=== PATIENT | female | born 1970 | race African-American/Black ===

== ENCOUNTER 2016-12-16 14:45 | Emergency (ER) | payer OTHER ==
[~2016-12-16] VITALS: Ht 170.2 cm; Wt 92.5 kg
[~2016-12-16 14:45] MED LIST: LORT5TAB PO; Z.0.NO CURRENT MEDS
[2016-12-16 14:46] VITALS: BP 143/85; PULSE 103; RESP 14; TEMP 98.6; O2SAT 99
--- NOTE | 2016-12-16 14:57 | PD ---
Physical Exam Date Seen by Provider: December 16, 2016 Time Seen by Provider: 14:54 Narrative Pt presents due to blood clots in her leg. She had an outpatient US preformed which shows an occlusive and non-occlusive DVT of left common femoral vein and iliac vein, superficial vein thrombosis of greater saphenous vein on the left. Pain is an 8/10 exacerbated by ambulation. No hx of DVT, no oral contraceptives. Pt on megace for her periods. Stopped this 2 weeks ago. No SOB or chest pain. VSS, awaiting bed placement. Data Data Last Documented VS Vital Signs Date Time Temp Pulse Resp B/P Pulse Ox O2 Delivery O2 Flow Rate FiO2 12/16/16 14:46 98.6 103 14 143/85 99 MDM Supervised Visit with LADONNA: Christina Avila December 16, 2016 14:57
--- NOTE | 2016-12-16 16:38 | PD ---
HPI Chief Complaint: Edema Time Seen by Provider: 16:22 Travel History International Travel<30 days: No Contact w/Intl Traveler<30days: No Traveled to known affect area: No History of Present Illness HPI This is a 46 year old female who presents to the emergency department with a dvt in her left leg. Pt. reports that for 2 weeks she has been having pain in her left lower extremity, constant, moderate severity, with no associated numbness or weakness. She has never had a DVT before. Pt. has fibroids and had been on megace but recently stopped it. Her talent coordinator sent her for the ultrasound. She denies chest pain or shortness of breath. PFSH Past Medical History Deep Vein Thrombosis: Yes Medical other: Yes (fibroids) ?: Not Social History Alcohol Use: No Tobacco Use: No Substance Use: No Allergies-Medications (Allergen,Severity, Reaction): Coded Allergies: No Known Allergies (Verified , 10/15/10) Reported Meds & Prescriptions Reported Meds & Active Scripts Active Lortab 5/500 (Acetaminophen/Hydrocodone Bitart) 5 Mg/500 Mg Tab 1-2 Tab PO Q6HPRN Reported No Current Meds (Miscellaneous Medication) Misc Review of Systems Except as stated in HPI: all other systems reviewed are Neg Physical Exam Narrative GENERAL:Well appearing, no acute distress SKIN: Focused skin assessment warm and dry. HEAD: Atraumatic. Normocephalic. EYES: Pupils equal and round. No injection or drainage. ENT: Moist mucous membranes NECK: Trachea midline. CARDIOVASCULAR: Regular rate and rhythm. No murmur appreciated. RESPIRATORY: Clear to auscultation. Breath sounds equal bilaterally. GASTROINTESTINAL: Abdomen soft, non-tender, nondistended. MUSCULOSKELETAL: No obvious deformities. NEUROLOGICAL: Awake and alert. No obvious cranial nerve deficits. Moving all extremities. PSYCHIATRIC: Appropriate mood and affect; insight and judgment normal. Data Data Last Documented VS Vital Signs Date Time Temp Pulse Resp B/P Pulse Ox O2 Delivery O2 Flow Rate FiO2 12/16/16 14:46 98.6 103 14 143/85 99 Orders Complete Blood Count With Diff (12/16/16 16:39) Basic Metabolic Panel (Bmp) (12/16/16 16:39) Prothrombin Time / Inr (Pt) (12/16/16 16:39) Act Partial Throm Time (Ptt) (12/16/16 16:39) Labs Laboratory Tests Test 12/16/16 16:30 White Blood Count 6.5 TH/MM3 Red Blood Count 4.48 MIL/MM3 Hemoglobin 9.1 GM/DL Hematocrit 29.6 % Mean Corpuscular Volume 66.1 FL Mean Corpuscular Hemoglobin 20.2 PG Mean Corpuscular Hemoglobin 30.6 % Concent Red Cell Distribution Width 21.6 % Platelet Count 442 TH/MM3 Mean Platelet Volume 9.1 FL Neutrophils (%) (Auto) 68.2 % Lymphocytes (%) (Auto) 22.5 % Monocytes (%) (Auto) 5.4 % Eosinophils (%) (Auto) 3.7 % Basophils (%) (Auto) 0.2 % Neutrophils # (Auto) 4.4 TH/MM3 Lymphocytes # (Auto) 1.4 TH/MM3 Monocytes # (Auto) 0.4 TH/MM3 Eosinophils # (Auto) 0.2 TH/MM3 Basophils # (Auto) 0.0 TH/MM3 CBC Comment AUTO DIFF Differential Comment AUTO DIFF CONFIRMED Platelet Estimate NORMAL Platelet Morphology Comment NORMAL Tear Drop Cells 1+ Ovalocytes 1+ Keratocytes OCC Prothrombin Time 11.4 SEC Prothromb Time International 1.0 RATIO Ratio Activated Partial 24.3 SEC Thromboplast Time Sodium Level 138 MEQ/L Potassium Level 3.5 MEQ/L Chloride Level 102 MEQ/L Carbon Dioxide Level 27.0 MEQ/L Anion Gap 9 MEQ/L Blood Urea Nitrogen 10 MG/DL Creatinine 0.76 MG/DL Estimat Glomerular Filtration 100 ML/MIN Rate Random Glucose 120 MG/DL Calcium Level 9.0 MG/DL MDM Medical Decision Making Medical Screen Exam Complete: Yes Emergency Medical Condition: Yes Interpretation(s) afebrile, tachycardic, hypertensive Microcytic anemia Electrolytes are reassuring Coags are normal Differential Diagnosis DVT, pulmonary embolism, renal insufficiency Narrative Course This is a 46-year-old female who presents to the emergency department with an occlusive and nonocclusive DVT in the left common femoral vein and the iliac vein diagnosed at an outpatient imaging center. Patient had been on Megace up until 2 weeks ago which is likely the etiology of her symptoms. I don't see any contraindication of the patient's starting Xarelto. She was given her first dose here in the emergency department. She is asked to follow up with her primary care physician and she was advised of the signs and symptoms of worsening anemia or bleeding. Diagnosis Primary Impression: DVT (deep venous thrombosis) Qualified Code: I82.412 - Acute deep vein thrombosis (DVT) of femoral vein of left lower extremity Patient Instructions: General Instructions Additional Instructions: If you develop severe chest pain, shortness of breath, sweating, lightheadedness , dizziness or difficulty breathing return to the emergency department immediately. Followup with your primary care physician in 2-3 days without fail regarding your dvt and your xarelto. Med/Other Pt SpecificInfo: Prescription(s) given Scripts Rivaroxaban (Xarelto)15 Mg Tab15 Mg PO BID 21 Days Ref 0 Prov:Jimena Luke MD 12/16/16 Disposition: 01 DISCHARGE HOME Condition: Stable Jimena Luke MD December 16, 2016 16:38
[2016-12-16 17:18] LABS: AUTOMATED NEUTROPHIL # 4.4 TH/MM3 (1.8-7.7); BASOPHIL % 0.2 % (0.0-2.0); EOSINOPHIL # 0.2 TH/MM3 (0-0.4); EOSINOPHIL % 3.7 % (0.0-4.0); HEMATOCRIT 29.6 % (35.0-46.0); LYMPH % 22.5 % (9.0-44.0); LYMPHOCYTE # 1.4 TH/MM3 (1.0-4.8); MEAN CELL VOLUME 66.1 FL (80.0-100.0); MEAN CORPUSCULAR HEMOGLOBIN 20.2 PG (27.0-34.0); MEAN CORPUSCULAR HGB CONC 30.6 % (32.0-36.0); MONO % 5.4 % (0.0-8.0); NEUT % 68.2 % (16.0-70.0); PLATELET COUNT 442 TH/MM3 (150-450); RED BLOOD COUNT 4.48 MIL/MM3 (4.00-5.30); RED CELL DISTRIBUTION WIDTH 21.6 % (11.6-17.2); WHITE BLOOD COUNT 6.5 TH/MM3 (4.0-11.0)
[2016-12-16 17:21] LABS: APTT (PATIENT) 24.3 SEC (24.3-30.1); PROTHROMBIN TIME - PATIENT 11.4 SEC (9.8-11.6)
[2016-12-16 17:22] LABS: HEMO FLAGS AUTO DIFF
[2016-12-16 17:34] LABS: POTASSIUM 3.5 MEQ/L (3.5-5.1)
[2016-12-16 18:03] LABS: KERATOCYTES OCC (NORMAL); OVALOCYTES 1+ (NORMAL); PLATELET ESTIMATE SMEAR NORMAL (NORMAL); PLATELET MORPHOLOGY NORMAL (NORMAL); SCAN/DIFF AUTO DIFF CONFIRMED; TEARDROP RBCS 1+ (NORMAL)
[2016-12-16] MEDS ORDERED: XARE15TA PO (18:21)
[2016-12-16] MEDS ORDERED: RIVAROXABAN 15 MG TAB PO ONE (18:30)
== END 2016-12-16 19:23 | disposition home or self-care (01) ==
LOC: NEPC 14:45
DX: I82.412 Acute embolism and thrombosis of left femoral vein (principal)
CPT/HCPCS: 80048; 85025; 85610; 85730; 99284

== ENCOUNTER 2017-02-22 11:24 | Inpatient (IN) | payer OTHER ==
[~2017-02-22] VITALS: Ht 170.2 cm; Wt 92.2 kg
[2017-02-25] MEDS ORDERED: IBUP200T2 PO (12:42)
[2017-02-28] MEDS ORDERED: ceFAZolin 2 GM PREMIX 50 ML IV SCH (06:15)
[2017-02-28] MEDS ORDERED: INSULIN HUMAN REGULAR 1,000 UNITS/10 ML VIAL SQ PRN (06:30)
[2017-02-28] MEDS ORDERED: CHLORHEXIDINE GLUCONATE 2 % 1 PACK (2 CLOTHS) TOPICAL PRN (06:30)
[2017-02-28] MEDS ORDERED: POVIDONE IODINE 5% (ANTISEPSIS KIT) 4 APPLICATIONS EACH NARE PRN (06:30)
[2017-02-28] MEDS ORDERED: SODIUM CHLORID 0.9% 500 ML IV PRN (06:30)
[2017-02-28] MEDS ORDERED: LACTATED RINGER'S 1000 ML IV PRN (06:30)
[2017-02-28] MEDS ORDERED: METOPROLOL TARTRATE 25 MG TAB PO PRN (06:30)
[2017-02-28 06:36] VITALS: BP 139/78; PULSE 87; RESP 16; TEMP 98.5; O2SAT 100
[2017-02-28 06:44] LABS: MEAN CORPUSCULAR HGB CONC 29.3 % (32.0-36.0)
[2017-02-28 06:57] LABS: BASOPHIL % 0.2 % (0.0-2.0); EOSINOPHIL # 0.3 TH/MM3 (0-0.4); LYMPH % 32.5 % (9.0-44.0); LYMPHOCYTE # 1.2 TH/MM3 (1.0-4.8); MEAN CELL VOLUME 66.4 FL (80.0-100.0); MEAN CORPUSCULAR HEMOGLOBIN 19.5 PG (27.0-34.0); MONO % 7.7 % (0.0-8.0); NEUT % 52.6 % (16.0-70.0); PLATELET COUNT 296 TH/MM3 (150-450); RED BLOOD COUNT 4.97 MIL/MM3 (4.00-5.30); RED CELL DISTRIBUTION WIDTH 22.2 % (11.6-17.2); WHITE BLOOD COUNT 3.8 TH/MM3 (4.0-11.0)
[2017-02-28 07:00] LABS: HEMO FLAGS AUTO DIFF
[2017-02-28 07:08] LABS: PROTHROMBIN TIME - PATIENT 10.7 SEC (9.8-11.6)
[2017-02-28] MEDS ORDERED: ACETAMINOPHEN 1000 MG/100 ML VIAL IV ONE (07:08)
[2017-02-28] MEDS ORDERED: ONDANSETRON HCL 4 MG/2 ML VIAL ONE (07:09)
[2017-02-28] MEDS ORDERED: FAMOTIDINE 20 MG/2 ML VIAL ONE (07:09)
[2017-02-28] MEDS ORDERED: fentaNYL CITRATE 250 MCG/5 ML AMP ONE ×2 (07:09→10:46)
[2017-02-28] MEDS ORDERED: MIDAZOLAM HCL 2 MG/2 ML VIAL ONE (07:09)
[2017-02-28 07:30] LABS: BETA HCG QUANT LESS THAN 1 MIU/ML (0-5)
[2017-02-28 08:09] LABS: OVALOCYTES 2+ (NORMAL); PLATELET ESTIMATE SMEAR NORMAL (NORMAL); PLATELET MORPHOLOGY NORMAL (NORMAL); SCAN/DIFF AUTO DIFF CONFIRMED
--- NOTE | 2017-02-28 08:20 | MH ---
cc: SERAFIN HOFFMANN DATE OF ADMISSION: 02/28/2017 HISTORY OF PRESENT ILLNESS: The patient is a 46-year-old 2, para 2 who presents with a history of menorrhagia and history of uterine fibroids. The patient desires operative intervention. She has failed OCPs and actually had a blood clot and she was taking Megace and that was back in December of 2016. The patient has seen Dr. Ferguson and has stopped her Xarelto back on February 18. She had a follow up ultrasound on 02/16 that showed the clot had resolved. PAST MEDICAL HISTORY: The patient's past medical history is significant for: 1. Anemia. 2. Headaches. 3. Left lower extremity DVT. ALLERGIES: NONE. OB HISTORY: She had two pregnancies, both with vaginal deliveries. COMPUTER SYSTEMS SOFTWARE ARCHITECT HISTORY: No STDs. No abnormal Pap smear. She does have a history of uterine fibroids, largest was 6 to 7 cm. Her endometrial biopsy back in November was also negative. PAST SURGICAL HISTORY: Bartholin's cyst incision and drainage. FAMILY HISTORY: Negative. SOCIAL HISTORY: Negative for cigarettes, alcohol, street drugs. The patient is single and works at [employer] in [employer]. REVIEW OF SYSTEMS: Review of all other systems is negative. PHYSICAL EXAMINATION: HEIGHT: 5 feet 6. WEIGHT: 206. VITAL SIGNS: Her blood pressure is 118/74. GENERAL: She is in no acute distress. HEART: Regular rate and rhythm. LUNGS: Clear to auscultation bilaterally. ABDOMEN: The abdomen is soft, nontender and nondistended. She does have an 18 to 20 week sized uterus. LOWER EXTREMITIES: Nontender, nonedematous. IMPRESSION: 1. Menorrhagia. 2. Uterine fibroids. PLAN: The plan is for an for a total abdominal hysterectomy with bilateral salpingectomies. The risks, benefits, alternatives have been reviewed. The patient does desire to proceed. MD VINCENT Arellano/[facility] /3:16 PM /8:23 AM
[2017-02-28] MEDS ORDERED: SODIUM CHLORIDE 0.9% FLUSH 10 ML FLUSH IV FLUSH PRN (09:45)
[2017-02-28] MEDS ORDERED: PROMETHAZINE HCL 25 MG TAB PO PRN (09:45)
[2017-02-28] MEDS ORDERED: IBUPROFEN 600 MG TAB PO PRN (09:45)
[2017-02-28] MEDS ORDERED: ZOLPIDEM TARTRATE 5 MG TAB PO PRN (09:45)
[2017-02-28] MEDS ORDERED: ONDANSETRON HCL 4 MG/2 ML VIAL IVP PRN (09:45)
[2017-02-28] MEDS ORDERED: NALOXONE HCL 0.4 MG/ML AMP IV PRN (09:45)
[2017-02-28] MEDS ORDERED: diphenhydrAMINE HCL 25 MG CAP PO PRN ×2 (09:45)
[2017-02-28] MEDS ORDERED: KETOROLAC TROMETHAMINE 30 MG/ML (IVP) VIAL IVP PRN (09:45)
[2017-02-28] MEDS ORDERED: ONDANSETRON ODT 4 MG TAB PO PRN (09:45)
[2017-02-28] MEDS ORDERED: oxyCODONE/ACETAMINOPHEN 5 MG/325 MG TAB PO PRN (09:45)
[2017-02-28] MEDS ORDERED: diphenhydrAMINE HCL 50 MG/ML VIAL IV PRN (09:45)
[2017-02-28] MEDS ORDERED: PROMETHAZINE INJ 25 MG/ML VIAL IM PRN (09:45)
[2017-02-28] MEDS ORDERED: DO NOT ADM ANY ANTICOAGULANT DRUGS PRN (09:47)
[2017-02-28] MEDS: LACTATED RINGER'S 1000 ML INJ 1,000 ML IV SCH ×2 (10:00→18:10)
[2017-02-28] MEDS: MORPHINE SULFATE 30 MG/30 ML PCA IV SCH ×2 (10:13→18:09)
[2017-02-28] MEDS ORDERED: NEOSTIGMINE 3 MG/3 ML SYR IV ONE (12:00)
[2017-02-28] MEDS ORDERED: LACTATED RINGER'S 1000 ML INJ 1,000 ML IV ONE (12:00)
[2017-02-28] MEDS ORDERED: PROPOFOL 200 MG/20 ML AMP IV ONE (12:00)
[2017-02-28] MEDS ORDERED: ONDANSETRON HCL 4 MG/2 ML VIAL IV PUSH ONE (12:00)
[2017-02-28 14:00] VITALS: BP 115/67; PULSE 84; RESP 16; TEMP 97.8; O2SAT 97
[2017-02-28] MEDS: PCA - TOTAL MG MORPHINE DELIVERED PER SHIFT SCH ×2 (14:00→22:00)
[2017-02-28 16:00] VITALS: BP 129/69; PULSE 69; RESP 16; TEMP 97.2; O2SAT 99
[2017-02-28 20:15] VITALS: BP 120/64; PULSE 78; RESP 16; TEMP 97.1; O2SAT 98
[2017-02-28] MEDS: SODIUM CHLORIDE 0.9% FLUSH 10 ML FLUSH IV FLUSH SCH (21:00)
[2017-02-28] MEDS: DOCUSATE SODIUM 100 MG CAP PO SCH (22:11)
[2017-03-01] VITALS (7 sets, daily range): BP systolic 108–126; BP diastolic 58–76; PULSE 64–73; RESP 16; TEMP 97.9–99.3; O2SAT 97–100
[2017-03-01] MEDS: LACTATED RINGER'S 1000 ML INJ 1,000 ML IV SCH ×3 (02:08→20:28)
[2017-03-01] MEDS: PCA - TOTAL MG MORPHINE DELIVERED PER SHIFT SCH ×4 (06:00→20:29)
[2017-03-01] MEDS: DOCUSATE SODIUM 100 MG CAP PO SCH ×2 (08:06→23:10)
[2017-03-01] MEDS: ENOXAPARIN SODIUM 40 MG/0.4 ML SYRINGE SQ SCH (08:06)
[2017-03-01] MEDS: SODIUM CHLORIDE 0.9% FLUSH 10 ML FLUSH IV FLUSH SCH ×2 (08:06→23:18)
--- NOTE | 2017-03-01 10:04 | HHI.PR ---
Subjective Remarks Doing well, pain is well controlled, mild nausea, denies vomiting, SOB or CP. Objective Vital Signs Vital Signs Date Time Temp Pulse Resp B/P Pulse Ox O2 Delivery O2 Flow Rate FiO2 03/01/17 08:42 97.9 70 16 126/69 98 03/01/17 06:00 16 03/01/17 04:15 99.0 73 16 110/65 97 03/01/17 00:00 98.1 67 16 108/63 98 02/28/17 22:00 16 02/28/17 20:15 97.1 78 16 120/64 98 02/28/17 18:20 16 02/28/17 18:09 16 02/28/17 16:00 97.2 69 16 129/69 99 02/28/17 14:00 97.8 84 16 115/67 97 02/28/17 14:00 16 02/28/17 13:50 60 14 132/76 100 Nasal Cannula 2 02/28/17 13:30 66 14 141/81 100 Nasal Cannula 2 02/28/17 12:30 54 14 137/82 100 Nasal Cannula 2 02/28/17 11:30 54 14 137/82 100 Nasal Cannula 2 02/28/17 10:30 58 14 138/82 100 Nasal Cannula 2 02/28/17 10:15 60 14 139/85 100 Nasal Cannula 3 02/28/17 10:13 14 I/O 02/28/17 02/28/17 02/28/17 03/01/17 03/01/17 03/01/17 07:00 15:00 23:00 07:00 15:00 23:00 Intake Total 2980 ml 1516 ml 1030 ml Output Total 550 ml 1250 ml 250 ml Balance 2430 ml 266 ml 780 ml Intake Oral 480 ml IV Total 500 ml 1516 ml 1030 ml Other 2000 ml Output Urine Total 300 ml 1250 ml 250 ml Estimated Blood Loss 250 ml # Bowel Movements 0 Result Diagram: 02/28/17 0620 Objective Remarks Chest is clear, regular rate and rhythm. Abdomen is soft and non-distended. Incision is clean and dry. Ext no CCE. A/P Assessment and Plan Post Op Day 1 Doing well advance diet start po meds zofran and reglan for nausea. Low Nazario MD Mar 01, 2017 10:04
[2017-03-01 12:35] LABS: AUTOMATED NEUTROPHIL # 6.1 TH/MM3 (1.8-7.7); BASOPHIL % 0.3 % (0.0-2.0); HEMATOCRIT 28.7 % (35.0-46.0); HEMO FLAGS DIFF FINAL; LYMPH % 7.2 % (9.0-44.0); LYMPHOCYTE # 0.5 TH/MM3 (1.0-4.8); MEAN CELL VOLUME 64.6 FL (80.0-100.0); MEAN CORPUSCULAR HEMOGLOBIN 19.8 PG (27.0-34.0); MEAN CORPUSCULAR HGB CONC 30.7 % (32.0-36.0); MONO % 5.3 % (0.0-8.0); NEUT % 87.2 % (16.0-70.0); PLATELET COUNT 248 TH/MM3 (150-450); RED BLOOD COUNT 4.45 MIL/MM3 (4.00-5.30); RED CELL DISTRIBUTION WIDTH 22.2 % (11.6-17.2); WHITE BLOOD COUNT 6.9 TH/MM3 (4.0-11.0)
[2017-03-01] MEDS: oxyCODONE/ACETAMINOPHEN 5 MG/325 MG TAB PO PRN ×3 (12:50→23:09)
[2017-03-01] MEDS: METOCLOPRAMIDE HCL 10 MG/2 ML VIAL IV PUSH SCH ×2 (12:52→18:05)
[2017-03-01 14:00] LABS: BICARBONATE 28.6 MEQ/L (21.0-32.0); POTASSIUM 3.7 MEQ/L (3.5-5.1)
[2017-03-01] MEDS: METOCLOPRAMIDE HCL 10 MG TAB PO SCH (23:10)
[2017-03-02] VITALS: BP 120/58; PULSE 64; RESP 16; TEMP 99.2; O2SAT 94
[2017-03-02 04:00] VITALS: BP 121/74; PULSE 83; RESP 16; TEMP 99.5; O2SAT 98
[2017-03-02] MEDS: oxyCODONE/ACETAMINOPHEN 5 MG/325 MG TAB PO PRN ×2 (06:51→11:20)
[2017-03-02] MEDS: METOCLOPRAMIDE HCL 10 MG TAB PO SCH (06:52)
[2017-03-02 08:00] VITALS: BP 119/73; PULSE 75; RESP 18; TEMP 98.9; O2SAT 98
[2017-03-02] MEDS ORDERED: SIMETHICONE 80 MG CHEWABLE TAB PO SCH (09:00)
[2017-03-02] MEDS: ENOXAPARIN SODIUM 40 MG/0.4 ML SYRINGE SQ SCH (10:04)
[2017-03-02] MEDS: DOCUSATE SODIUM 100 MG CAP PO SCH (10:04)
[2017-03-02] MEDS: SODIUM CHLORIDE 0.9% FLUSH 10 ML FLUSH IV FLUSH SCH (10:05)
[2017-03-02] MEDS ORDERED: OXYC1TAB63 PO (11:39)
[2017-03-02] MEDS ORDERED: IBUP-232 PO (11:39)
--- NOTE | 2017-03-02 11:41 | HHI.DCPOC ---
Discharge Care Plan Diagnosis: (1) Menorrhagia Your Health Problems Are: Vaginal bleeding Report Symptoms to Your Doctor -Temperature above 100.5 degrees -Redness, of incision or excessive or foul smelling drainage -Unusual pain or calf pain -Increased vaginal bleeding -Painful or difficulty urinating -Feelings of extreme sadness or anxiety after 2 weeks Goals to Promote Your Health * To prevent worsening of your condition and complications * To maintain your health at the optimal level Directions to Meet Your Goals Take your medications as prescribed Follow your dietary instruction Follow activity as directed Ensure plenty of rest for recovery Drink fluids for hydration Keep your appointments as scheduled Take your immunizations and boosters as scheduled If your symptoms worsen call your PCP, if no PCP go to Urgent Care Center or Emergency Room Smoking is Dangerous to Your Health. Avoid second hand smoke Call the 24-hour crisis hotline for domestic abuse at Low Nazario MD Mar 02, 2017 11:41
[2017-03-02 12:00] VITALS: BP 116/72; PULSE 78; RESP 16; TEMP 98.8; O2SAT 98
--- NOTE | 2017-03-02 22:24 | HHI.DS ---
Discharge Summary Admission Date Feb 28, 2017 at 05:34 Discharge Date: Mar 02, 2017 Admitting Diagnosis (1) Menorrhagia Diagnosis: Principal Procedures LEEROY/b/l salpingectomies CBC/BMP: 03/01/17 1205 03/01/17 1205 Significant Findings Laboratory Tests Test 02/28/17 03/01/17 06:20 12:05 White Blood Count 3.8 TH/MM3 (4.0-11.0) Hemoglobin 9.7 GM/DL 8.8 GM/DL (11.6-15.3) (11.6-15.3) Hematocrit 33.0 % 28.7 % (35.0-46.0) (35.0-46.0) Mean Corpuscular Volume 66.4 FL 64.6 FL (80.0-100.0) (80.0-100.0) Mean Corpuscular Hemoglobin 19.5 PG 19.8 PG (27.0-34.0) (27.0-34.0) Mean Corpuscular Hemoglobin 29.3 % 30.7 % Concent (32.0-36.0) (32.0-36.0) Red Cell Distribution Width 22.2 % 22.2 % (11.6-17.2) (11.6-17.2) Eosinophils (%) (Auto) 7.0 % (0.0-4.0) Ovalocytes 2+ (NORMAL) Neutrophils (%) (Auto) 87.2 % (16.0-70.0) Lymphocytes (%) (Auto) 7.2 % (9.0-44.0) Lymphocytes # (Auto) 0.5 TH/MM3 (1.0-4.8) Blood Urea Nitrogen 6 MG/DL (7-18) Hospital Course pt was admitted for LEEROY. by POD 1 pt was doing well and voiding. by POD 2 pt was voiding, passing gas with good pain control with oral meds. Pt Condition on Discharge: Good Discharge Disposition: Discharge Home Discharge Instructions DIET: Follow Instructions for: As Tolerated, No Restrictions Activities you can perform: Regular-No Restrictions Activities to avoid: Weight Bearing, Prolonged Standing, Strenuous Activity, Driving, Sexual Activity Low Nazario MD Mar 02, 2017 22:23
--- NOTE | 2017-03-07 10:12 | MP ---
cc: LOW HOFFMANN DATE OF SURGERY 02/28/2017 PREOPERATIVE DIAGNOSIS Menorrhagia and fibroids. POSTOPERATIVE DIAGNOSIS Menorrhagia and fibroids. PROCEDURE Total abdominal hysterectomy with bilateral salpingectomies. SURGEON Low Hoffmann MD GUEST SERVICES COORDINATOR Dulce Hunter MD ANESTHESIA General. ESTIMATED BLOOD LOSS 250 cc. DRAINS Vasquez to gravity. SPECIMENS Uterus and bilateral fallopian tubes. DISPOSITION Stable in the PACU. INDICATIONS FOR PROCEDURE The patient is a pleasant 46-year-old female who desired operative intervention for her menorrhagia and uterine fibroids. DESCRIPTION OF PROCEDURE After informed consent had been obtained, she was taken to the operating room, prepped and draped in normal sterile fashion in supine position for surgery. A Pfannenstiel skin incision was made approximately 2 fingerbreadths above the pubic symphysis. This was carried down to the underlying layer of fascia using a Bovie. The fascia in the incision was extended laterally. Mikki clamps were used to elevate the fascia and the rectus muscles were dissected off superiorly and inferiorly. Next, the peritoneum was identified and then bluntly the peritoneal incision was extended laterally and superiorly and inferiorly as well. Next, a large fibroid uterus was encountered, approximately 16-18 weeks' size. Because of its size, it was delivered through the large Pfannenstiel incision without difficulty. The bowel was packed out of the way using moist laparotomy sponges. The utero-ovarian and round ligaments were grasped bilaterally using Marta clamps. The round ligaments were suture ligated using a Mikki clamp, was cauterized and divided. The same procedure was carried out on the left side, then on the patient's right side. The vesicouterine peritoneum was identified and divided sharply and pushed down using a sponge stick. Once this was done, the uteroovarian ligament was clamped, cut and suture ligated and good hemostasis was noted. This was done on the left side and then on the patient's right side. Care was taken to insure the bladder was down and out of the operative field. The uterine artery was skeletonized and the same carried out on the patient's left side. It was doubly clamped and then cut and suture ligated with goof hemostatic result, done initially on the left side, then on the right side. Successive bites were taken and until the level of the external cervical os was reached. Once this was done the Zeppelin clamps were placed just under the cervix bilaterally. The uterus and cervix were amputated using the Dmitry's scissors without difficulty. The vaginal cuff was oversewn in a [id number]-dibth fashion and good hemostasis was noted. Attention at this point was then turned to the patient's fallopian tubes. The fallopian tube was initially elevated on the patient's left side and clamped using Ilia clamp and then amputated and suture ligated with a good hemostatic result. The same procedure was then carried out on the right side. Once this was done and it was felt that all pedicles were dry, the pelvis was copiously irrigated and this was confirmed. The moist laparotomy sponges were removed from the patient's abdomen. The bowel was allowed to fall into place naturally. The rectus muscles were reapproximated using 0 Vicryl suture. The fascia was reapproximated using 0 Vicryl suture using two full lengths of suture that met in the midline. The subcu fat was irrigated and noted to be hemostatic and the skin was closed using a 3-0 Monocryl suture in a subcuticular fashion. Steri-Strips and a pressure dressing were applied. The patient was then allowed to be awakened and extubated and taken to the recovery room in stable condition Low Hoffmann MD TEG/SSB /8:59 PM /9:54 AM
== END 2017-03-02 14:22 | disposition home or self-care (01) | DRG 743 ==
LOC: HSDI 02-28 05:34 → HOCA 02-28 13:54
PROVIDERS: ADMIT Obstetrics & Gynecology; ATTEND Obstetrics & Gynecology
PROC: 0UTC0ZZ Resection of Cervix, Open Approach (ICD-10-PCS; 2017-02-28)
PROC: 0UT70ZZ Resection of Bilateral Fallopian Tubes, Open Approach (ICD-10-PCS; 2017-02-28)
PROC: 0UT90ZZ Resection of Uterus, Open Approach (ICD-10-PCS; principal; 2017-02-28 07:30)
DX: D25.1 Intramural leiomyoma of uterus (principal); N92.0 Excessive and frequent menstruation with regular cycle; Z86.718 Personal history of other venous thrombosis and embolism
CPT/HCPCS: 80048; 84702; 85025; 85610; 86850; 86900; 86901; 88307; 94150; C1765; J0131; J0690; J1650; J2250; J2270; J2405; J2710; J3010; J7120